=== PATIENT | male | born 1930 | race Caucasian/White ===

== ENCOUNTER 2016-11-10 12:28 | Emergency (ER) | payer OTHER ==
[~2016-11-10] VITALS: Ht 167.6 cm; Wt 68.0 kg
[2016-11-10 12:34] VITALS: Ht 167.6 cm; Wt 68.0 kg
--- NOTE | 2016-11-10 12:35 | ERA ---
ER Documentation Chief Complaint Date/Time DATE: 11/10/16 TIME: 12:34 Chief Complaint Generalized weakness per history HPI The patient is a 86-year-old male, presenting to the ER because of generalized weakness according to the geophysicist The patient himself denies any symptoms, feels well and does not know why he is here. He denies fever, cough, neck pain , chest pain, dyspnea, abdominal pain, vomiting, dysuria, diarrhea He does not smoke or drink Past medical history: BPH, hypertension, history of CHF, dyslipidemia, mild cognitive impairment Past surgical history: Pacemaker, right inguinal herniorrhaphy ROS All systems reviewed and are negative except as per history of present illness. Medications Home Meds Reported Medications Tamsulosin Hcl* (Flomax*) 0.4 Mg Cap.er.24h, 0.4 MG PO HS, CAP 11/10/16 Amlodipine Besylate* (Norvasc*) 5 Mg Tablet, 5 MG PO DAILY, TAB 11/10/16 Atenolol* (Atenolol*) 25 Mg Tablet, 25 MG PO BID, #60 TAB 11/10/16 Hydrochlorothiazide* (Hydrochlorothiazide*) 25 Mg Tab, 25 MG PO DAILY, #30 TAB 11/10/16 Atorvastatin Calcium (Atorvastatin Calcium) 10 Mg Tablet, 10 MG PO QHS, #30 TAB 11/10/16 Allergies Allergies: Coded Allergies: No Known Allergy (Unverified , 11/10/16) Physical Exam Vitals Vital Signs Date Time Temp Pulse Resp B/P Pulse Ox O2 Delivery O2 Flow Rate FiO2 11/10/16 18:00 68 20 152/103 93 Room Air 11/10/16 12:34 98.1 80 18 103/57 97 Physical Exam Const: No acute distress. Head: Atraumatic. Eyes: Normal Conjunctiva. ENT: Normal External Ears, Nose and Mouth. Neck: Full range of motion. No meningismus. Resp: Clear to auscultation bilaterally. Cardio: Regular rate and rhythm. Abd: Soft, non distended, normal bowel sounds, non tender. Skin: No petechiae or rashes. Back: No midline or flank tenderness. Ext: Left leg with ulcers and surrounding erythema, no calf tenderness Neur: Awake and alert. No focal deficit Psych: Normal Mood and Affect. Result Diagram: 11/10/16 1255 11/10/16 1255 Results 24 hrs Laboratory Tests Test 11/10/16 12:55 White Blood Count 7.610^3/ul Red Blood Count 2.6210^6/ul Hemoglobin 8.1g/dl Hematocrit 24.6% Mean Corpuscular Volume 93.9fl Mean Corpuscular Hemoglobin 30.9pg Mean Corpuscular Hemoglobin Concent 32.9g/dl Red Cell Distribution Width 14.1% Platelet Count 18388^3/UL Mean Platelet Volume 10.2fl Neutrophils % 79.1% Lymphocytes % 8.1% Monocytes % 8.7% Eosinophils % 3.2% Basophils % 0.5% Nucleated Red Blood Cells % 0.0/100WBC Neutrophils # 6.010^3/ul Lymphocytes # 0.610^3/ul Monocytes # 0.710^3/ul Eosinophils # 0.210^3/ul Basophils # 0.010^3/ul Nucleated Red Blood Cells # 0.010^3/ul Prothrombin Time 13.4Sec Prothrombin Time Ratio 1.0 INR International Normalized Ratio 1.02 Activated Partial Thromboplast Time 29.2Sec Sodium Level 138mmol/L Potassium Level 3.7mmol/L Chloride Level 105mmol/L Carbon Dioxide Level 24mmol/L Anion Gap 13 Blood Urea Nitrogen 32mg/dl Creatinine 1.26mg/dl Glucose Level 141mg/dl Calcium Level 9.2mg/dl Current Medications Medications (Trade) Dose Ordered Sig/Jasbir Route PRN Reason Start Time Stop Time Status Last Admin Dose Admin Sodium Chloride (NS) 500 ml @ 500 mls/hr Q1H ONCE IV 11/10/16 13:00 11/10/16 13:59 DC 11/10/16 13:27 Procedures/[place] [address] Radiology Main Line: [phone] DIAGNOSTIC IMAGING REPORT Patient: CAM KOCH : 1930 Age: 86 Sex: M MR #: [id number] DOS: 11/10/16 1243 Ordering MD: JULI MANCINI MD Location: E/R Room/Bed: PROCEDURE: CHEST 1VW CLINICAL INDICATION: Chest pain TECHNIQUE: Single frontal view of the chest was obtained COMPARISON: None. FINDINGS: There is a left chest wall dual lead pacer device. The cardiac size is mildly enlarged. Mild atherosclerotic calcifications are demonstrated. There is no pulmonary vascular congestion. The lungs are clear. No consolidation, effusion, or pneumothorax. Mild degenerative changes of the visualized osseous structures are visualized. IMPRESSION: 1. Mild cardiomegaly. No acute infiltrates. 2. Atherosclerosis. RPTAT:PP .Wil Trejo MD, MD Date Time Electronically viewed and signed by .Wil Trejo MD, MD on 11/10/2016 13:45 .V/ CC: JULI MANCINI MD EKG: Read by emergency physician Rate/Rhythm: Pacer at 58 beats/min No further attempt to interpret the EKG MEDICAL MAKING DECISION: The patient is a 86-year-old male, presenting with acute dehydration, acute left leg cellulitis, he was treated with normal saline 500 ml iv with good response The differential diagnoses considered include but are not limited to dehydration , electrolyte imbalance, TIA, GI bleed, dementia Departure Diagnosis: Primary Impression: Dehydration Additional Impressions: Cellulitis Anemia Condition: Good Comments Consultation: I discussed the person with the on-call physician for [facility] Dr. Silverman at 440pm, who was made aware of the lab, treatment, the patient condition. Agrees to discharge the patient and will arrange for outpatient follow-up for anemia workup including colonoscopy and EGD I discussed the findings with the patient. I advised the patient to follow-up with the primary physician in about 1-2 days, sooner if needed and return if any concern. JULI MANCINI MD Nov 10, 2016 12:34
[2016-11-10] MEDS ORDERED: SOD CHLORIDE 0.9% 500 ML IV ONE (13:00)
[2016-11-10 13:07] LABS: ADD SCAN DIFF NO
[2016-11-10 13:09] LABS: BASOPHILS % 0.5 % (0.0-2.0); EOSINOPHILS # 0.2 10^3/ul (0.0-0.5); EOSINOPHILS % 3.2 % (0.0-7.0); HEMATOCRIT 24.6 % (42.0-52.0); HEMOGLOBIN 8.1 g/dl (14.0-18.0); LYMPHOCYTES # 0.6 10^3/ul (0.8-2.9); LYMPHOCYTES % 8.1 % (15.0-51.0); MEAN CORPUSCULAR HEMOGLOBIN 30.9 pg (29.0-33.0); MEAN CORPUSCULAR HGB CONC 32.9 g/dl (32.0-37.0); MEAN CORPUSCULAR VOLUME 93.9 fl (82.0-101.0); MEAN PLATELET VOLUME 10.2 fl (7.4-10.4); MONOCYTE # 0.7 10^3/ul (0.3-0.9); MONOCYTES % 8.7 % (0.0-11.0); NEUTROPHILS % 79.1 % (39.0-77.0); PLATELET COUNT 169 10^3/UL (140-415); RED BLOOD COUNT 2.62 10^6/ul (4.70-6.10); RED CELL DISTRIBUTION WIDTH 14.1 % (11.5-14.5); WHITE BLOOD COUNT 7.6 10^3/ul (4.8-10.8)
[2016-11-10 13:24] LABS: INR 1.02; PARTIAL THROMBOPLASTIN TIME 29.2 Sec (25.0-35.0); PROTIME 13.4 Sec (12.2-14.2)
[2016-11-10 13:26] LABS: CALCIUM 9.2 mg/dl (8.4-10.2); CREATININE 1.26 mg/dl (0.61-1.24); POTASSIUM 3.7 mmol/L (3.5-5.1)
--- NOTE | 2016-11-10 13:45 | RADRPT ---
PROCEDURE: CHEST 1VW CLINICAL INDICATION: Chest pain TECHNIQUE: Single frontal view of the chest was obtained COMPARISON: None. FINDINGS: There is a left chest wall dual lead pacer device. The cardiac size is mildly enlarged. Mild atherosclerotic calcifications are demonstrated. There is no pulmonary vascular congestion. The lungs are clear. No consolidation, effusion, or pneumothorax. Mild degenerative changes of the visualized osseous structures are visualized. IMPRESSION: 1. Mild cardiomegaly. No acute infiltrates. 2. Atherosclerosis. RPTAT:PP .Wil Trejo MD, MD Date Time Electronically viewed and signed by .Wil Trejo MD, MD on 11/10/2016 13:45 .V/
[2016-11-10] MEDS ORDERED: ATOR10TA65 PO (15:20)
[2016-11-10] MEDS ORDERED: AMLO5TAB4 PO (15:20)
[2016-11-10] MEDS ORDERED: HYD25 PO (15:20)
[2016-11-10] MEDS ORDERED: ATEN-51 PO (15:20)
[2016-11-10] MEDS ORDERED: TAMS-14 PO (15:21)
[2016-11-10 18:00] VITALS: BP 152/103; PULSE 68; RESP 20
[2016-11-10] MEDS ORDERED: CLIN-73 PO (18:15)
== END 2016-11-10 18:45 | disposition home or self-care (01) ==
LOC: E/R 12:28
DX: E86.0 Dehydration (principal); R40.2242 Coma scale, best verbal response, confused conversation, at arrival to emergency department; L03.116 Cellulitis of left lower limb; I10 Essential (primary) hypertension; I50.9 Heart failure, unspecified; R40.2142 Coma scale, eyes open, spontaneous, at arrival to emergency department; R40.2362 Coma scale, best motor response, obeys commands, at arrival to emergency department; Z95.0 Presence of cardiac pacemaker
CPT/HCPCS: 71010; 80048; 85025; 85610; 85730; 93005; J7040

== ENCOUNTER 2017-03-16 23:28 | Emergency (ER) | payer OTHER ==
[~2017-03-16] VITALS: Ht 162.6 cm; Wt 68.0 kg
[~2017-03-16 23:28] MED LIST: AMLO5TAB4 PO; ATEN-51 PO; ATOR10TA65 PO; CLIN-73 PO; HYDR25TA6 PO; TAMS-14 PO
[2017-03-16 23:33] VITALS: Ht 162.6 cm; Wt 68.0 kg
--- NOTE | 2017-03-17 01:04 | RADRPT ---
PROCEDURE: CT Brain without contrast. CLINICAL INDICATION: Trauma. Pain. TECHNIQUE: Serial axial computed tomographic images of the brain was performed on a multidetector CT scanner from the skull base through the vertex without contrast. CTDlvol = 45 mGy and DLP = 810 m Gy-cm. One of the following 3 dose reduction techniques were used: Automated exposure control; adju stment of the mA and/or kV according to patient size; or use of iterative reconstruction technique. COMPARISON: None. FINDINGS: There is no fracture. There is age appropriate central and peripheral atrophy. There is no midline shift. There is no acute stroke. There is moderate degree of supratentorial periventricular and s ubcortical white matter hypodensities. No acute intracranial hemorrhage or abnormal extra-axial flu id collection. Visualized paranasal sinuses are clear. IMPRESSION: 1. No fracture. 2. No acute post-traumatic intracranial abnormality. 3. Nonspecific white matter changes most commonly seen with small vessel disease. RPTAT: HMVK .Mathew Michaels MD, Date Time Electronically viewed and signed by .Mathew Michaels MD, MD on 03/17/2017 01:04 .K/
--- NOTE | 2017-03-17 01:14 | RADRPT ---
PROCEDURE: CT cervical spine without contrast CLINICAL INDICATION: Trauma. Neck pain. TECHNIQUE: CT scan of the cervical spine was performed on a multidetector scanner. No IV contrast was administered. Coronal and sagittal reformatted images were obtained from the axial source imag es. Images were reviewed on a high-resolution PACS workstation. Exam CTDlvol = 22 mGy and DLP = 626 mGy-cm. One of the following 3 dose reduction techniques were used: Automated exposure control; ad justment of the mA and/or kV according to patient size; or use of iterative reconstruction technique . COMPARISON: None available FINDINGS: No fracture is identified. There is bony fusion of the C3-4 and C4-5 and C6-7 disc spaces. There ar e multilevel degenerative changes throughout the cervical spine. There is prominent osteophyte forma tion along the posterior aspect of the C3-C6 vertebral bodies. There is prominent disc osteophyte C5 -6. There is overall maintenance of height of the vertebral bodies. There is mild reversal of the n ormal cervical lordosis. Alignment is otherwise maintained. Prevertebral soft tissues are unremark able. Atherosclerotic calcifications of the carotid arteries are present. Left subclavian pacemaker is present. IMPRESSION: 1. No fracture. 2. Mild reversal of the normal cervical lordosis the presence of multilevel fusion of the disc spac e consistent with chronic changes. 3. Multilevel degenerative changes throughout the cervical spine. For atherosclerotic calcification s of the cervical carotid arteries. RPTAT: HMVK .Mathew Michaels MD, MD Date Time Electronically viewed and signed by .Mathew Michaels MD, MD on 03/17/2017 01:13 .K/
[2017-03-17] MEDS ORDERED: HYDROCODONE/APAP (5/325) TAB PO ONE (01:30)
--- NOTE | 2017-03-17 02:12 | RADRPT ---
PROCEDURE: Pelvis x-ray CLINICAL INDICATION: fall TECHNIQUE: Single AP view of the pelvis performed. COMPARISON: None FINDINGS: No acute fracture dislocation. The bones are demineralized. End-stage degenerative changes of the ri ght hip are present with bone on bone articulation, remodelling of the right femoral head , neck, an d acetabulum. There are associated sclerotic and cystic changes of the femoral head and acetabulum. Heterotopic bone formation arises from the right inferior pubic ramus. There is no acute fracture or dislocation. Soft tissue swelling overlies the right hip. Moderately severe degenerative changes of the left hip and lower lumbar spine are noted. IMPRESSION: 1. No acute fracture or dislocation. 2. 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 3. Soft tissue swelling overlying the right hip. RPTAT: HRSR Physician Jina Date Time Electronically viewed and signed by Physician Jina on 03/17/2017 02:12 RR/
[2017-03-17 03:14] VITALS: BP 168/76; PULSE 61; RESP 16; TEMP 98.5
--- NOTE | 2017-03-28 23:13 | ERD ---
ER Documentation Chief Complaint Chief Complaint FALL AT ASSISTED LIVING FACILITY. SUSPECTED HIP INJURY. RT ARM SKIN TEAR HPI This 87-year-old male had a fall at his assisted living facility. He has a mild skin tear on his right arm and complains of pain in his hip. No head trauma or loss of consciousness. No fevers no chills. No other current complaints. No complaints of weakness. ROS All systems reviewed and are negative except as per history of present illness. Medications Home Meds Active Scripts Clindamycin Hcl* (Clindamycin Hcl*) 300 Mg Capsule, 300 MG PO QID for 10 Days, CAP Prov:JULI MANCINI MD 11/10/16 Reported Medications Tamsulosin Hcl* (Flomax*) 0.4 Mg Cap.er.24h, 0.4 MG PO HS, CAP 11/10/16 Amlodipine Besylate* (Norvasc*) 5 Mg Tablet, 5 MG PO DAILY, TAB 11/10/16 Atenolol* (Atenolol*) 25 Mg Tablet, 25 MG PO BID, #60 TAB 11/10/16 Hydrochlorothiazide* (Hydrochlorothiazide*) 25 Mg Tab, 25 MG PO DAILY, #30 TAB 11/10/16 Atorvastatin Calcium (Atorvastatin Calcium) 10 Mg Tablet, 10 MG PO QHS, #30 TAB 11/10/16 Allergies Allergies: Coded Allergies: No Known Allergy (Unverified , 11/10/16) PMhx/Soc History of Surgery: No Anesthesia Reaction: No Hx Neurological Disorder: Yes (Seizure) Hx Cardiac Disorders: Yes (HTN) Hx Psychiatric Problems: Yes (Psychosis) Hx Miscellaneous Medical Probl: Yes (Liver Cirrhosis,BPH) Hx Alcohol Use: No Hx Substance Use: No Hx Tobacco Use: No Smoking Status: Unknown if ever smoked Physical Exam Physical Exam Const: [] Head: Atraumatic Eyes: Normal Conjunctiva ENT: Normal External Ears, Nose and Mouth. Neck: Full range of motion..~ No meningismus. Resp: Clear to auscultation bilaterally Cardio: Regular rate and rhythm, no murmurs Abd: Soft, non tender, non distended. Normal bowel sounds Skin: 3Centimeters skin tear noted on right forearm. No active bleeding Back: No midline or flank tenderness Ext: No cyanosis, or edema Neur: Awake and alert Psych: Normal Mood and Affect Results 24 hrs Current Medications Medications (Trade) Dose Ordered Sig/Jasbir Route PRN Reason Start Time Stop Time Status Last Admin Dose Admin Acetaminophen/ Hydrocodone Bitart ([place] (5/325)) 1 tab ONCE ONCE PO 03/17/17 01:30 03/17/17 01:31 DC 03/17/17 01:47 Procedures/MDM X-ray Hip 2V Interpreted by me: Bones: No fracture Joints: No dislocation Foreign body: None Medical assessment: 87-year-old male with mechanical fall no significant injury. At this point stable for outpatient management. Discharge back to assisted living facility. Right arm skin tear was cleaned and bandaged. Departure Diagnosis: Primary Impression: Fall with no significant injury Encounter type: initial encounter Qualified Code: W19.XXXA - Fall with no significant injury, initial encounter Condition: Stable Patient Instructions: Fall, Uncertain Cause WAYNE SNIDER Mar 28, 2017 23:13
== END 2017-03-17 05:30 | disposition home or self-care (01) ==
LOC: E/R 23:28
DX: S51.811A Laceration without foreign body of right forearm, initial encounter (principal); I10 Essential (primary) hypertension; R51 Headache; W18.39XA Other fall on same level, initial encounter; Y92.9 Unspecified place or not applicable
CPT/HCPCS: 70450; 72125; 72170

== ENCOUNTER 2017-06-13 07:49 | Emergency (ER) | END 2017-06-13 13:40 | disposition short-term general hospital (02) ==